=== PATIENT | female | born 1965 | race Caucasian/White ===

== ENCOUNTER → 2016-10-18 | Day surgery (SDC) | payer OTHER ==
[~2016-10-18] VITALS: Ht 162.6 cm; Wt 66.3 kg
[~2016-10-18] MED LIST: *morphine SULFATE 8 MG/ML PERIprocedure ONLY ONE; ACETAMINOPHEN 1000 MG/100 ML VIAL IV ONE; ACETAMINOPHEN/HYDROcodone 325 MG/5 MG TAB PO PRN; ATOR20TA15 PO; BUPIVACAINE HCL PF 0.5% 30 ML VIAL ONE; CHLORHEXIDINE GLUCONATE 2 % 1 PACK (2 CLOTHS) TOPICAL PRN; CLIN1CAP6 PO; DEXAMETHASONE SOD PHOS 4 MG/ML VIAL ONE; EFFE150C PO; HYDR-3288 PO; IMIT50TA PO; INSULIN HUMAN REGULAR 1,000 UNITS/10 ML VIAL SQ PRN; LACTATED RINGER'S 1000 ML INJ 1,000 ML IV ONE; LACTATED RINGER'S 1000 ML IV PRN; LIDOCAINE 1%/EPINEPHrine 1:100,000 SOLN 20 ML VIAL ONE; LIDOCAINE 1%/EPINEPHrine 1:100,000 SOLN 30 ML VIAL INFIL ONE; LIDOCAINE HCL 2% 50 ML VIAL ONE; LOSA25TA PO; MEPERIDINE HCL 50 MG/ML VIAL IM PRN; METF500T PO; METOPROLOL TARTRATE 25 MG TAB PO PRN; MIDAZOLAM HCL 2 MG/2 ML VIAL ONE; NEOSTIGMINE 3 MG/3 ML SYR IV ONE; ONDANSETRON HCL 4 MG/2 ML VIAL IV PUSH ONE; PHENYLEPH/NS 1000 MCG/10 ML SYR IV ONE; POVIDONE IODINE 5% (ANTISEPSIS KIT) 4 APPLICATIONS EACH NARE PRN; PROPOFOL 200 MG/20 ML AMP IV ONE; SODIUM CHLORID 0.9% 500 ML IV PRN; TOPA25TA8 PO; TRIAMCINOLONE ACETONIDE 40 MG/ML VIAL ONE; ePHEDrine/NS 25 MG/5 ML SYR IV ONE; fentaNYL CITRATE 250 MCG/5 ML AMP ONE
[2016-10-18 06:41] VITALS: BP 121/80; PULSE 84; RESP 16; TEMP 98.8; O2SAT 97
[2016-10-18 07:14] LABS: AUTOMATED NEUTROPHIL # 1.8 TH/MM3 (1.8-7.7); BASOPHIL % 0.9 % (0.0-2.0); EOSINOPHIL # 0.1 TH/MM3 (0-0.4); EOSINOPHIL % 1.4 % (0.0-4.0); HEMO FLAGS DIFF FINAL; LYMPH % 54.3 % (9.0-44.0); LYMPHOCYTE # 2.8 TH/MM3 (1.0-4.8); MEAN CELL VOLUME 87.6 FL (80.0-100.0); MEAN CORPUSCULAR HEMOGLOBIN 29.4 PG (27.0-34.0); MEAN CORPUSCULAR HGB CONC 33.6 % (32.0-36.0); MONO % 8.7 % (0.0-8.0); NEUT % 34.7 % (16.0-70.0); PLATELET COUNT 202 TH/MM3 (150-450); RED BLOOD COUNT 4.57 MIL/MM3 (4.00-5.30); RED CELL DISTRIBUTION WIDTH 13.7 % (11.6-17.2); WHITE BLOOD COUNT 5.1 TH/MM3 (4.0-11.0)
[2016-10-18] MEDS: VANCOMYCIN HCL 1000 MG ON-CALL/NS 250 ML IV SCH ×4 (08:42→08:49)
--- NOTE | 2016-10-18 09:51 | EKG ---
Date Performed: 10/18/2016 Time Performed: 06:49:21 PTAGE: 51 years EKG: Sinus rhythm WITH SINUS ARRHYTHMIA NORMAL ECG NO PREVIOUS TRACING DOCTOR: Nacho Villa Interpretating Date/Time 10/18/2016 09:50:14
--- NOTE | 2016-10-18 11:39 | RADRPT ---
EXAM DATE/TIME: 10/18/2016 10:39 [place] COMPARISON: No previous studies available for comparison. INDICATIONS : Right ulna shortening. MEDICAL HISTORY : None. SURGICAL HISTORY : None. ENCOUNTER: Initial ACUITY: 1 day PAIN SCORE: Non-responsive. LOCATION: Right Ulna/Radius. FINDINGS: 5 views from the OR have been submitted. There is a plate seen at the distal ulna. There is a fractur e/resection at the mid to distal ulnar shaft that is successfully reduced by the plate. On the final image, there is a needle directed towards the pisiform bone. CONCLUSION: Good placement of a surgical plate following ulnar shortening. Alex Gann MD on October 18, 2016 at 11:33 Board Certified Radiologist. This report was verified electronically.
[2016-10-18 13:25] VITALS: BP 98/59; PULSE 99; RESP 20; TEMP 97.7; O2SAT 95
--- NOTE | 2016-10-19 08:18 | MP ---
cc: GASTON RAMIREZ III, M.D. DATE OF SURGERY 10/18/2016 PREOPERATIVE DIAGNOSIS 1. Right ulnocarpal impaction syndrome 2. Right TFCC tear. 3. Right pisotriquetral arthritis PROCEDURE 1. Right ulnar shortening osteotomy and open reduction internal fixation. 2. Right wrist arthroscopy with TFCC debridement and thermal shrinkage 3. Right pisotriquetral joint steroid injection under fluoroscopy. 4. Use of image intensifier SURGEON Gaston Ramirez III, MD PROCEDURE The patient brought to the operating room and placed supine on the operating table. After the correct site and side of surgery were verified by members of each team in the room multiple times including the patient and myself and after adequate preoperative markings and preoperative written consent were verified by everyone and after an adequate preoperative time-out was performed to everyone's satisfaction and after adequate general anesthesia had been achieved, the right upper extremity was prepped and draped in the traditional sterile surgical fashion. The right ulna was dressed first using the C-arm. The site of the intended procedure was verified. Preprocedure films were obtained. A 50/50 mixture of 2% plain Lidocaine and 0.5% plain Marcaine was infiltrated in the skin and subcutaneous tissue on the superficial most aspect of the ulna. An incision was longitudinally over the superficial most lying part of the ulna, carried down through skin and subcutaneous tissue. Blunt dissection was performed. Bipolar electrocautery was used as needed. The ulnar neurovascular bundle was never exposed. The periosteum over the ulnar and volar side of the ulna was gently elevated just enough to accommodate a 9 cm long [employer] ulnar shortening osteotomy plate. The template and the protocol were then followed with the [employer] rep, clearly going through each [id number] and the ulna was shortened 2-3 mm with direct 100% apposition and compression of the osteotomy site. The screws were tailored to length under C-arm guidance. Passive range of motion was then performed across the wrist and there was smooth motion in all planes with no limitation and no crepitance and no clunking and no evidence of any instability at all. Final x-rays were obtained. Thorough irrigation was performed several times throughout the case using 2 liters worth of plain saline. The musculature was then closed over the ulna using interrupted 3-0 Vicryl sutures. Irrigation was performed again. The deep subcutaneous tissues were reapproximated using buried 3-0 Vicryl sutures and then the skin edges were reapproximated using running 4-0 nylon sutures. Please note, the tourniquet was not used at any point during this case. The arm was then placed in the tabletop wrist traction tower and gently immobilized with the wrist slightly flexed at 5-7 pounds of distraction. The 2-3 and the 4-5 intervals were used. The radial carpal joint was infiltrated with 1% lidocaine with epinephrine. Two small vertical incisions were made. The wrist arthroscope was then inserted through the 2-3 portal. Irrigation was used with a spinal needle coming out ulnarly. The scaphoid ligament was visualized and was intact. The scaffold lunate ligament was intact. There was a mild amount of inflammation radially which was debrided. There was a central tear in the TFCC as seen on the MRI. This was then meticulously debrided to very clean edges and then some of the laxity was removed from the TFCC using the thermal shrinkage probe and some pictures were obtained throughout this portion of the procedure. There are no other abnormalities identified. The instruments were removed and the dorsal incisions were closed using 4-0 nylon sutures. Under C-arm guidance, the pisotriquetral joint was sterilely injected with a one-to-one mixture of 2% plain lidocaine and 0.5% plain Marcaine mixed with Kenalog 40 mg/mL for a total of 1 cc of injectate. The hand and arm were thoroughly cleansed and dried. Betadine Adaptic dressings were applied on top of the wounds and a well-padded, well-molded very bulky volar immobilizing splint was made in the usual fashion up to the elbow leaving the thumb and all the fingers free as well as the elbow. Capillary refill was less than two seconds and all fingertips. The patient was awakened from anesthesia and transported to the Post Anesthesia Care Unit awake and in stable condition at the end of the case. The sponge, needle, and instrument counts were correct at the end of the case as reported by nurses in the room. MD DESTINY Dunne III/PHI /12:07 PM 8:05 AM
== END | disposition home or self-care (01) ==
LOC: HSDC 06:00
PROVIDERS: ATTEND Orthopaedic Surgery Hand Surgery
DX: M24.831 Other specific joint derangements of right wrist, not elsewhere classified (principal); S63.591A Other specified sprain of right wrist, initial encounter; M19.031 Primary osteoarthritis, right wrist; X58.XXXA Exposure to other specified factors, initial encounter
CPT/HCPCS: 01830; 25390; 29846; 73090; 76000; 85025; 93005; C1713; J0131; J1100; J2250; J2270; J2370; J2405; J2710; J3010; J3301; J3370; J7050; J7120